=== PATIENT | male | born 1955 | race Caucasian/White ===

== ENCOUNTER 2024-07-29 10:54 | Outpatient (CLI) | payer OTHER ==
[2024-07-29 12:54] LABS: FREE T4 (FREE THYROXINE) 1.09 NG/DL (0.73-1.40); THYROID STIMULATING HORMONE 1.56 ulU/ml (0.34-4.50)
== END 2024-07-29 23:59 | disposition home or self-care (01) ==
LOC: CARD DIAG 10:54
PROVIDERS: ATTEND Chiropractor
DX: I08.8 Other rheumatic multiple valve diseases (principal); I25.89 Other forms of chronic ischemic heart disease
CPT/HCPCS: 36415; 84439; 84443; 84481; 93306

== ENCOUNTER 2025-02-03 11:43 | Outpatient (CLI) | payer OTHER ==
--- NOTE | 2025-02-03 14:22 | VASCULAR REPORT ---
EXAM: VASC VL FARHANA ANKLE/BRACHIAL INDEX CLINICAL HISTORY: Peripheral arterial disease Peripheral vascular disease COMPARISON: None TECHNIQUE: Bilateral systolic ankle and brachial pressures are obtained, with ankle pulse volume waveforms and i ndices. FINDINGS: Pressures: Right Left Brachial 140 mmHg 120 mmHg PT 160 mmHg 162 mmHg DP 140 mmHg 142 mmHg FARHANA: Right Left 1.14 1.16 Pulse volume waveforms: Multiphasic IMPRESSION: Normal FARHANA, bilateral. 1.0-1.4: normal 0.91-0.99 borderline 0.9: abnormal (i.e. PAD) 0.4-0.9: lbam-ql-fytpdtme PAD <0.4: suggestive of severe PAD
== END 2025-02-03 23:59 | disposition home or self-care (01) ==
LOC: VAS 11:43
PROVIDERS: ATTEND Chiropractor
DX: I73.9 Peripheral vascular disease, unspecified (principal)
CPT/HCPCS: 93922